=== PATIENT | male | born 1955 | race African-American/Black ===

== ENCOUNTER 2019-06-22 06:48 | Observation (INO) ==
[2019-06-22] MEDS ORDERED: PROMETHAZINE INJ 25 MG in SODIUM CHLORIDE 0.9% 50 ML IV PRN (08:41)
[2019-06-22] MEDS ORDERED: chlorproMAZINE INJ 25 MG in SODIUM CHLORIDE 0.9% 100 ML IV PRN (08:41)
[2019-06-22] MEDS ORDERED: ALPRAZolam 0.25 MG TABLET PO PRN (08:41)
[2019-06-22] MEDS ORDERED: BENZTROPINE 2 MG/2 ML AMP IV PRN (08:41)
[2019-06-22] MEDS ORDERED: guaiFENesin 200 MG/10 ML UDCUP PO PRN (08:41)
[2019-06-22] MEDS ORDERED: LACTULOSE 20 GM/30 ML UDCUP PO PRN (08:41)
[2019-06-22] MEDS ORDERED: ALUMINUM/MAGNES/SIMETH MAX STR 30 ML UDCUP PO PRN (08:41)
[2019-06-22] MEDS ORDERED: LOPERAMIDE 2 MG CAPSULE PO PRN ×2 (08:41)
[2019-06-22] MEDS ORDERED: TEMAZEPAM 7.5 MG CAPSULE PO PRN (08:41)
[2019-06-22] MEDS ORDERED: ACETAMINOPHEN 325 MG TABLET PO PRN (08:41)
[2019-06-22] MEDS ORDERED: diphenhydrAMINE CAP 25 MG CAPSULE PO PRN (08:41)
[2019-06-22] MEDS ORDERED: MYLANTA/LIDO VISC 2:1 300 ML BOTTLE SWISH/SWAL PRN (08:41)
[2019-06-22] MEDS ORDERED: MAGNESIUM HYDROXIDE SUSP 30 ML UDCUP PO PRN (08:41)
[2019-06-22] MEDS ORDERED: ONDANSETRON 4 MG/2 ML VIAL IV PRN (08:41)
[2019-06-22] MEDS ORDERED: chlorproMAZINE INJ 50 MG in SODIUM CHLORIDE 0.9% 100 ML IV PRN (08:41)
[2019-06-22] MEDS ORDERED: chlorproMAZINE 25 MG TABLET PO PRN (08:41)
[2019-06-22] MEDS ORDERED: traMADol 50 MG TABLET PO PRN (08:41)
[2019-06-22] MEDS ORDERED: MYLANTA/LIDO VISC 2:1 300 ML BOTTLE SWISH/SPIT PRN (08:41)
[2019-06-22 09:17] LABS: Basophils % 0.3 % (0.0-0.8); Eosinophils % 0.3 % (0.00-10.9); Hematocrit 30.2 VOL% (42.0-52.0); Hemoglobin 10.1 GM/DL (14.0-18.0); Immature Granulocytes % 1.1 %; Lymphocytes # 0.6 10*3/uL (1.4-4.0); Lymphocytes % 6.9 % (21.2-54.2); Mean Corpuscular HGB Conc 33.4 GM/DL (32-36); Mean Corpuscular Volume 82.3 FL (87-102); Monocytes % 11.5 % (1.7-12.7); Neutrophils % 79.9 % (38.7-73.9); Platelet Count 125 T/CUMM (130-400); Red Blood Count 3.67 MC/CUMM (3.8-5.5); Red Cell Distribution Width 18.7 % (9.3-17.3); White Blood Count 9.3 T/CUMM (4-12)
[2019-06-22 09:32] LABS: Albumin 1.9 G/DL (3.4-5.0); Bilirubin,Total 4.9 MG/DL (0.2-1.0); Calcium 8.8 MG/DL (8.5-10.1); Osmolality,Calculated 278.4 MOS/KG (273-304); Total Protein 7.8 G/DL (6.4-8.3); Uric Acid 6.6 MG/DL (3.5-7.2)
[2019-06-22 09:34] LABS: Hypochromasia 1+; Ovalocytes Slight
[2019-06-22] MEDS ORDERED: MAGNESIUM SULF RIDER 2 GM in PREMIX 1 EACH IV PRN (18:02)
[2019-06-22] MEDS: MAGNESIUM SULF RIDER 4 GM in PREMIX 1 EACH IV PRN (18:16)
[2019-06-23 04:48] LABS: Basophils % 0.2 % (0.0-0.8); Eosinophils # 0.1 10*3/uL (0.0-0.87); Eosinophils % 0.6 % (0.00-10.9); Hematocrit 27.9 VOL% (42.0-52.0); Hemoglobin 9.5 GM/DL (14.0-18.0); Immature Granulocytes % 0.8 %; Immature Granulocytes Absolute 0.08 #; Lymphocytes # 0.7 10*3/uL (1.4-4.0); Lymphocytes % 6.3 % (21.2-54.2); Mean Corpuscular HGB Conc 34.1 GM/DL (32-36); Mean Corpuscular Volume 80.2 FL (87-102); Monocytes % 12.9 % (1.7-12.7); Neutrophils % 79.2 % (38.7-73.9); Platelet Count 115 T/CUMM (130-400); Red Blood Count 3.48 MC/CUMM (3.8-5.5); Red Cell Distribution Width 18.8 % (9.3-17.3); White Blood Count 10.5 T/CUMM (4-12)
[2019-06-23 05:09] LABS: Albumin 1.9 G/DL (3.4-5.0); Calcium 8.8 MG/DL (8.5-10.1); Osmolality,Calculated 282.1 MOS/KG (273-304); Total Protein 7.7 G/DL (6.4-8.3)
[2019-06-23 05:18] LABS: Lymphocytes 6 % (20-55); Metamyelocytes 1 %; Platelet Estimate Decreased; Segmented Neutrophils 85 % (50-85); Total Cells Counted 100
[2019-06-23 05:19] LABS: Polychromasia Few; Target Cells Few
[2019-06-23] MEDS ORDERED: HYDROmorphone 2 MG/1 ML VIAL IV PRN (08:15)
[2019-06-23] MEDS ORDERED: fentaNYL 25 MCG/HR PATCH TRANSDERM SCH (09:00)
[2019-06-23] MEDS ORDERED: diphenhydrAMINE 50 MG/1 ML VIAL IV ONE (10:30)
[2019-06-23] MEDS ORDERED: OXALIPLATIN 150 MG in DEXTROSE 5% 250 ML IV ONE (10:30)
[2019-06-23] MEDS ORDERED: FAMOTIDINE 20 MG/2 ML VIAL IV ONE (10:30)
[2019-06-23] MEDS ORDERED: DEXAMETHASONE 10 MG/1 ML VIAL IV ONE (10:30)
[2019-06-23] MEDS ORDERED: FLUOROURACIL IV ONE (10:30)
[2019-06-23] MEDS ORDERED: PALONOSETRON 0.25 MG/5 ML VIAL IV ONE (10:30)
[2019-06-23] MEDS: LOSARTAN/HCTZ 50-12.5 MG TABLET PO SCH (16:18)
[2019-06-23 17:12] LABS: Apearance,Urine Slightly Hazy (Clear); Blood, Urine Negative (Negative); Glucose,Urine (UA) Negative (Negative); Ketones,Urine Negative (Negative); Mucus,Urine Occasional /LPF (Occasional); Nitrite,Urine Negative (Negative); Protein,Urine 30 MG/DL; RBC,Urine 2 /HPF (0-4); Squamous Epithelial Cell,Urine Occasional /HPF (0-10); Urine Color Amber (Yellow); Urine Specific Gravity 1.024 (1.001-1.035); WBC,Urine 3 /HPF (0-6)
[2019-06-23 17:13] LABS: Bilirubin,Urine Moderate mg/dL (Negative)
[2019-06-24 05:45] LABS: Bilirubin,Total 3.9 MG/DL (0.2-1.0); Calcium 9.1 MG/DL (8.5-10.1); Osmolality,Calculated 285.1 MOS/KG (273-304); Total Protein 8.4 G/DL (6.4-8.3)
[2019-06-24] MEDS: MAGNESIUM SULF RIDER 4 GM in PREMIX 1 EACH IV PRN (06:23)
[2019-06-24] MEDS: LOSARTAN/HCTZ 50-12.5 MG TABLET PO SCH (08:45)
[2019-06-24 08:56] VITALS: BP 157/106
[2019-06-24] MEDS ORDERED: FILGRASTIM-SNDZ 300 MCG/0.5 ML SYRINGE SUBCUT SCH (09:00)
[2019-06-24 11:10] LABS: Basophils % 0.1 % (0.0-0.8); Hematocrit 30.3 VOL% (42.0-52.0); Hemoglobin 10.1 GM/DL (14.0-18.0); Immature Granulocytes % 0.5 %; Immature Granulocytes Absolute 0.08 #; Lymphocytes # 0.4 10*3/uL (1.4-4.0); Lymphocytes % 2.8 % (21.2-54.2); Mean Corpuscular HGB Conc 33.3 GM/DL (32-36); Mean Corpuscular Volume 82.8 FL (87-102); Monocytes % 2.9 % (1.7-12.7); Neutrophils % 93.7 % (38.7-73.9); Platelet Count 144 T/CUMM (130-400); Red Blood Count 3.66 MC/CUMM (3.8-5.5); Red Cell Distribution Width 19.5 % (9.3-17.3); White Blood Count 14.6 T/CUMM (4-12)
[2019-06-24 11:32] LABS: Hypochromasia 1+; Lymphocytes 1 % (20-55); Platelet Estimate Adequate; Segmented Neutrophils 95 % (50-85); Total Cells Counted 100
== END 2019-06-24 12:55 | disposition home or self-care (01) ==
LOC: INTOOBSV 06:48 → N.4E 06:48
PROVIDERS: ADMIT Specialist; ATTEND Specialist

== ENCOUNTER 2019-08-14 15:28 | Inpatient (IN) ==
[2019-08-14] MEDS ORDERED: SODIUM CHLORIDE 0.9% 1,000 ML IV STA (15:49)
[2019-08-14 16:42] LABS: Basophils % 0.1 % (0.0-0.8); Hematocrit 25.6 VOL% (42.0-52.0); Hemoglobin 8.1 GM/DL (14.0-18.0); Immature Granulocytes % 0.5 %; Immature Granulocytes Absolute 0.05 #; Lymphocytes # 0.5 10*3/uL (1.4-4.0); Lymphocytes % 4.2 % (21.2-54.2); Mean Corpuscular HGB Conc 31.6 GM/DL (32-36); Mean Platelet Volume 10.1 FL (9.6-12.0); Monocytes % 8.6 % (1.7-12.7); Neutrophils % 86.6 % (38.7-73.9); Platelet Count 161 T/CUMM (130-400); Red Blood Count 2.91 MC/CUMM (3.8-5.5); Red Cell Distribution Width 23.5 % (9.3-17.3); White Blood Count 10.8 T/CUMM (4-12)
[2019-08-14 16:53] LABS: INR 1.2; PT Patient Result 12.7 SECS (9.6-12.2); Partial Thromboplastin Time < 21.0 SECS (20.8-36.0)
[2019-08-14 16:58] LABS: Alanine Aminotransferase 30 U/L (16-61); Albumin 1.9 G/DL (3.4-5.0); Alkaline Phosphatase 556 U/L (45-117); Aspartate Amino Transferase 146 U/L (0-37); Blood Urea Nitrogen 20 MG/DL (7-18); Calcium 8.4 MG/DL (8.5-10.1); Estimated Glom Filtration Rate 116 ML/MIN; Glucose 113 MG/DL (74-106); Osmolality,Calculated 291.7 MOS/KG (273-304); Total Protein 9.6 G/DL (6.4-8.3)
[2019-08-14 17:06] LABS: Apearance,Urine Slightly Hazy (Clear); Bilirubin,Urine Negative (Negative); Blood, Urine Large mg/dL (Negative); Glucose,Urine (UA) Negative (Negative); Ketones,Urine 20 mg/dL (Negative); Mucus,Urine Occasional /LPF (Occasional); Nitrite,Urine Negative (Negative); Protein,Urine 100 MG/DL; RBC,Urine 1287 /HPF (0-4); Urine Color Amber (Yellow); Urine Specific Gravity 1.018 (1.001-1.035)
[2019-08-14 17:07] LABS: Barbiturates Screen,Urine Negative (Negative); Benzodiazepines Screen,Urine Negative (Negative); Cannabinoid Screen,Urine Negative (Negative); Opiate Screen,Urine Negative (Negative); Phencyclidine Screen,Urine Negative (Negative)
[2019-08-14 18:34] LABS: Anisocytosis 1+; Band Neutrophils 1 % (0-10); Lymphocytes 7 % (20-55); Macrocytosis 1+; Segmented Neutrophils 88 % (50-85); Total Cells Counted 100
[2019-08-14 18:35] LABS: Platelet Estimate Adequate
[2019-08-14] MEDS ORDERED: guaiFENesin/DM ER 600-30 MG TABLET PO PRN (18:47)
[2019-08-14] MEDS ORDERED: ONDANSETRON 4 MG/2 ML VIAL IV PRN (18:47)
[2019-08-14] MEDS ORDERED: ACETAMINOPHEN 325 MG TABLET PO PRN (18:47)
[2019-08-14] MEDS ORDERED: SODIUM CHLORIDE 0.9% IV ONE (18:50)
[2019-08-14] MEDS ORDERED: PANTOPRAZOLE IV ONE (18:50)
[2019-08-14] MEDS ORDERED: PANTOPRAZOLE 40 MG VIAL IV ONE (21:28)
[2019-08-14] MEDS: DEXT 5% NACL 0.9% KCL 20 MEQ 20 MEQ/1,000 ML BAG IV SCH (23:03)
[2019-08-15] MEDS ORDERED: SODIUM CHLORIDE 0.9% 1,000 ML IV ONE (00:49)
[2019-08-15] MEDS: cefTRIAXone 1,000 MG in SYRINGE 1 EACH IV SCH (01:29)
[2019-08-15 06:02] LABS: Basophils % 0.1 % (0.0-0.8); Hematocrit 22.2 VOL% (42.0-52.0); Hemoglobin 6.9 GM/DL (14.0-18.0); Immature Granulocytes % 0.5 %; Immature Granulocytes Absolute 0.06 #; Lymphocytes # 0.6 10*3/uL (1.4-4.0); Mean Corpuscular HGB Conc 31.1 GM/DL (32-36); Mean Corpuscular Volume 89.9 FL (87-102); Mean Platelet Volume 9.8 FL (9.6-12.0); Monocytes % 9.8 % (1.7-12.7); NRBC # 0.02 10*3/uL; Neutrophils % 84.6 % (38.7-73.9); Platelet Count 119 T/CUMM (130-400); Red Blood Count 2.47 MC/CUMM (3.8-5.5); Red Cell Distribution Width 23.5 % (9.3-17.3); White Blood Count 12.5 T/CUMM (4-12)
[2019-08-15 06:19] LABS: Albumin 1.8 G/DL (3.4-5.0); Bilirubin,Total 1.4 MG/DL (0.2-1.0); Calcium 7.8 MG/DL (8.5-10.1)
[2019-08-15] MEDS ORDERED: POTASSIUM CHLORIDE 20 MEQ TABLET PO PRN (07:59)
[2019-08-15] MEDS ORDERED: SODIUM CHLORIDE 0.9% 1,000 ML IV PRN (08:03)
[2019-08-15] MEDS: POTASSIUM CHLORIDE 20 MEQ TABLET PO PRN ×4 (09:20→17:21)
[2019-08-15] MEDS ORDERED: HEPARIN LOCK FLUSH 500 UNIT/5 ML SYRINGE IV ONE (09:27)
[2019-08-15] MEDS: DEXT 5% NACL 0.9% KCL 20 MEQ 20 MEQ/1,000 ML BAG IV SCH (09:47)
[2019-08-15] MEDS: DEXTROSE 5% NACL 0.45% 1,000 ML IV SCH (09:58)
[2019-08-15 18:53] LABS: Hematocrit 29.3 VOL% (42.0-52.0)
[2019-08-15 18:56] LABS: Hemoglobin 9.4 GM/DL (14.0-18.0)
[2019-08-16] MEDS: cefTRIAXone 1,000 MG in SYRINGE 1 EACH IV SCH (02:34)
[2019-08-16] MEDS: DEXTROSE 5% NACL 0.45% 1,000 ML IV SCH (02:36)
[2019-08-16 05:53] LABS: Basophils % 0.1 % (0.0-0.8); Eosinophils # 0.1 10*3/uL (0.0-0.87); Eosinophils % 0.9 % (0.00-10.9); Hematocrit 25.5 VOL% (42.0-52.0); Hemoglobin 8.4 GM/DL (14.0-18.0); Immature Granulocytes % 1.9 %; Immature Granulocytes Absolute 0.18 #; Lymphocytes # 0.6 10*3/uL (1.4-4.0); Lymphocytes % 6.5 % (21.2-54.2); Mean Corpuscular HGB Conc 32.9 GM/DL (32-36); Mean Corpuscular Volume 85.9 FL (87-102); Mean Platelet Volume 10.1 FL (9.6-12.0); Monocytes % 11.5 % (1.7-12.7); NRBC # 0.02 10*3/uL; Neutrophils % 79.1 % (38.7-73.9); Red Blood Count 2.97 MC/CUMM (3.8-5.5); White Blood Count 9.7 T/CUMM (4-12)
[2019-08-16 05:54] LABS: Platelet Count 107 T/CUMM (130-400)
[2019-08-16 06:14] LABS: Calcium 6.8 MG/DL (8.5-10.1)
[2019-08-16 06:36] LABS: Platelet Estimate Decreased; Polychromasia Few
[2019-08-16] MEDS: POTASSIUM CHLORIDE RIDER 10 MEQ in PREMIX 1 EACH IV PRN ×3 (07:59→10:32)
[2019-08-16] MEDS ORDERED: LIDOCAINE 2% 5 ML VIAL ONE (09:00)
[2019-08-16] MEDS ORDERED: propofoL 200 MG/20 ML VIAL IV ONE (09:00)
[2019-08-16] MEDS ORDERED: LACTATED RINGERS 1,000 ML IV SCH (09:30)
[2019-08-17] MEDS: cefTRIAXone 1,000 MG in SYRINGE 1 EACH IV SCH (02:15)
[2019-08-17] MEDS: DEXTROSE 5% NACL 0.45% 1,000 ML IV SCH ×2 (02:40→08:07)
[2019-08-17 03:17] LABS: Basophils % 0.1 % (0.0-0.8); Eosinophils # 0.1 10*3/uL (0.0-0.87); Eosinophils % 1.2 % (0.00-10.9); Immature Granulocytes % 0.4 %; Immature Granulocytes Absolute 0.04 #; Lymphocytes # 0.9 10*3/uL (1.4-4.0); Lymphocytes % 9.1 % (21.2-54.2); Mean Corpuscular HGB Conc 32.4 GM/DL (32-36); Mean Corpuscular Volume 87.1 FL (87-102); Mean Platelet Volume 10.5 FL (9.6-12.0); Monocytes % 11.1 % (1.7-12.7); Neutrophils % 78.1 % (38.7-73.9); Platelet Count 93 T/CUMM (130-400); Red Blood Count 2.02 MC/CUMM (3.8-5.5); Red Cell Distribution Width 20.8 % (9.3-17.3); White Blood Count 9.8 T/CUMM (4-12)
[2019-08-17 03:19] LABS: Hematocrit 17.6 VOL% (42.0-52.0); Hemoglobin 5.7 GM/DL (14.0-18.0)
[2019-08-17 03:25] LABS: Osmolality,Calculated 271.7 MOS/KG (273-304)
[2019-08-17 04:06] LABS: Hypochromasia 2+; Platelet Estimate Normal; Polychromasia Few
[2019-08-17 04:21] LABS: Anisocytosis 1+; Microcytosis 1+
[2019-08-17 05:28] LABS: Basophils % 0.1 % (0.0-0.8); Eosinophils # 0.1 10*3/uL (0.0-0.87); Eosinophils % 1.3 % (0.00-10.9); Hematocrit 26.2 VOL% (42.0-52.0); Hemoglobin 8.6 GM/DL (14.0-18.0); Immature Granulocytes % 0.5 %; Immature Granulocytes Absolute 0.04 #; Lymphocytes # 0.6 10*3/uL (1.4-4.0); Lymphocytes % 8.3 % (21.2-54.2); Mean Corpuscular HGB Conc 32.8 GM/DL (32-36); Mean Corpuscular Volume 85.9 FL (87-102); Mean Platelet Volume 9.9 FL (9.6-12.0); Monocytes % 10.5 % (1.7-12.7); Neutrophils % 79.3 % (38.7-73.9); Red Blood Count 3.05 MC/CUMM (3.8-5.5); Red Cell Distribution Width 20.7 % (9.3-17.3); White Blood Count 7.6 T/CUMM (4-12)
[2019-08-17 05:31] LABS: Platelet Count 99 T/CUMM (130-400)
[2019-08-17 06:02] LABS: Platelet Estimate Decreased
[2019-08-17 06:03] LABS: Polychromasia Few
[2019-08-17] MEDS: POTASSIUM CHLORIDE 20 MEQ TABLET PO PRN ×3 (09:05→16:57)
[2019-08-17 11:33] LABS: Hematocrit 27.9 VOL% (42.0-52.0); Hemoglobin 9.2 GM/DL (14.0-18.0)
[2019-08-17] MEDS: PANTOPRAZOLE 40 MG TABLET PO SCH (20:57)
[2019-08-18] MEDS: cefTRIAXone 1,000 MG in SYRINGE 1 EACH IV SCH (01:50)
[2019-08-18] MEDS: PANTOPRAZOLE 40 MG TABLET PO SCH (08:46)
[2019-08-18] MEDS ORDERED: HEPARIN LOCK FLUSH 500 UNIT/5 ML SYRINGE IV ONE (12:50)
[2019-08-18 13:13] VITALS: BP 125/83
== END 2019-08-18 16:10 | disposition home health service (06) | DRG 432 ==
LOC: EDBD → EDUNIT# → N.ED 15:28 → SUATTDRO 18:47 → N.EDINP 18:47 → N.4E 19:33
PROVIDERS: ADMIT Internal Medicine Cardiovascular Disease; ATTEND Internal Medicine
PROC: EGDWEBL (ICD-10-PCS; 2019-08-16 12:20)

== ENCOUNTER 2019-09-07 10:41 | Inpatient (IN) ==
[2019-09-07] MEDS ORDERED: PANTOPRAZOLE 40 MG VIAL IV STA (10:56)
[2019-09-07] MEDS ORDERED: ONDANSETRON 4 MG/2 ML VIAL IV STA (10:56)
[2019-09-07] MEDS ORDERED: SODIUM CHLORIDE 0.9% 1,000 ML IV STA (11:06)
[2019-09-07 11:58] LABS: Basophils % 0.1 % (0.0-0.8); Immature Granulocytes % 1.4 %; Immature Granulocytes Absolute 0.28 #; Lymphocytes # 1.3 10*3/uL (1.4-4.0); Lymphocytes % 6.5 % (21.2-54.2); Mean Corpuscular HGB Conc 32.9 GM/DL (32-36); Mean Corpuscular Volume 85.4 FL (87-102); Mean Platelet Volume 10.2 FL (9.6-12.0); Platelet Count 239 T/CUMM (130-400); Red Blood Count 1.92 MC/CUMM (3.8-5.5); Red Cell Distribution Width 18.9 % (9.3-17.3); White Blood Count 19.5 T/CUMM (4-12)
[2019-09-07 12:03] LABS: INR 1.2; PT Patient Result 13.4 SECS (9.6-12.2); Partial Thromboplastin Time 24.6 SECS (20.8-36.0)
[2019-09-07 12:13] LABS: Albumin 1.3 G/DL (3.4-5.0); Bilirubin,Total 2.9 MG/DL (0.2-1.0); Calcium 7.7 MG/DL (8.5-10.1); Osmolality,Calculated 268.5 MOS/KG (273-304); Total Protein 7.3 G/DL (6.4-8.3)
[2019-09-07 12:15] LABS: Hematocrit 16.4 VOL% (42.0-52.0); Hemoglobin 5.4 GM/DL (14.0-18.0)
[2019-09-07] MEDS ORDERED: SODIUM CHLORIDE 0.9% 1,000 ML IV PRN (12:24)
[2019-09-07] MEDS ORDERED: ONDANSETRON 4 MG/2 ML VIAL IV PRN (13:34)
[2019-09-07] MEDS ORDERED: PROMETHAZINE 25 MG/1 ML VIAL IM PRN (13:34)
[2019-09-07] MEDS: CYPROHEPTADINE 4 MG TABLET PO SCH ×2 (16:10→22:53)
[2019-09-07] MEDS ORDERED: OCTREOTIDE 100 MCG/ML SYRINGE IV ONE (18:13)
[2019-09-07] MEDS: OCTREOTIDE 500 MCG in SODIUM CHLORIDE 0.9% 100 ML IV SCH (22:47)
[2019-09-07] MEDS: TAMSULOSIN 0.4 MG CAPSULE PO SCH (22:53)
[2019-09-08 00:24] LABS: Hematocrit 29.7 VOL% (42.0-52.0); Hemoglobin 10.4 GM/DL (14.0-18.0)
[2019-09-08 01:54] LABS: Apearance,Urine CLEAR (Clear); Bilirubin,Urine Negative (Negative); Blood, Urine Negative (Negative); Glucose,Urine (UA) Negative (Negative); Hyaline Casts,Urine 10 /LPF (0-3); Ketones,Urine Negative (Negative); Mucus,Urine Occasional /LPF (Occasional); Nitrite,Urine Negative (Negative); Protein,Urine Negative; RBC,Urine 2 /HPF (0-4); Urine Color Amber (Yellow); Urine Specific Gravity 1.015 (1.001-1.035); WBC,Urine 1 /HPF (0-6)
[2019-09-08] MEDS ORDERED: SODIUM CHLORIDE 0.9% 500 ML IV ONE (02:20)
[2019-09-08 03:12] LABS: Basophils % 0.1 % (0.0-0.8); Hematocrit 29.2 VOL% (42.0-52.0); Hemoglobin 10.2 GM/DL (14.0-18.0); Immature Granulocytes Absolute 0.19 #; Lymphocytes # 0.8 10*3/uL (1.4-4.0); Mean Corpuscular HGB Conc 34.9 GM/DL (32-36); Mean Platelet Volume 9.3 FL (9.6-12.0); Monocytes % 12.8 % (1.7-12.7); NRBC # 0.03 10*3/uL; Neutrophils % 82.1 % (38.7-73.9); Platelet Count 122 T/CUMM (130-400); Red Blood Count 3.52 MC/CUMM (3.8-5.5); Red Cell Distribution Width 15.9 % (9.3-17.3); White Blood Count 18.6 T/CUMM (4-12)
[2019-09-08 03:31] LABS: Calcium 7.4 MG/DL (8.5-10.1); Osmolality,Calculated 277.8 MOS/KG (273-304)
[2019-09-08 04:56] LABS: Band Neutrophils 1 % (0-10); Lymphocytes 3 % (20-55); Platelet Estimate Normal; Segmented Neutrophils 89 % (50-85); Total Cells Counted 100
[2019-09-08 04:57] LABS: Hypochromasia Slight
[2019-09-08 05:54] LABS: Basophils % 0.1 % (0.0-0.8); Hematocrit 29.9 VOL% (42.0-52.0); Hemoglobin 10.5 GM/DL (14.0-18.0); Immature Granulocytes % 0.8 %; Immature Granulocytes Absolute 0.16 #; Lymphocytes # 0.7 10*3/uL (1.4-4.0); Lymphocytes % 3.8 % (21.2-54.2); Mean Corpuscular HGB Conc 35.1 GM/DL (32-36); Mean Corpuscular Volume 83.1 FL (87-102); Mean Platelet Volume 10.7 FL (9.6-12.0); Monocytes % 11.6 % (1.7-12.7); NRBC # 0.02 10*3/uL; Neutrophils % 83.7 % (38.7-73.9); Platelet Count 123 T/CUMM (130-400); Red Cell Distribution Width 15.9 % (9.3-17.3); White Blood Count 18.9 T/CUMM (4-12)
[2019-09-08] MEDS ORDERED: LACTULOSE 20 GM/30 ML UDCUP PO SCH (06:00)
[2019-09-08] MEDS: OCTREOTIDE 500 MCG in SODIUM CHLORIDE 0.9% 100 ML IV SCH ×2 (06:12→10:00)
[2019-09-08 06:13] LABS: Band Neutrophils 1 % (0-10); Lymphocytes 4 % (20-55); Platelet Estimate Decreased; Segmented Neutrophils 87 % (50-85); Total Cells Counted 100
[2019-09-08 06:14] LABS: Calcium 7.6 MG/DL (8.5-10.1); Osmolality,Calculated 279.7 MOS/KG (273-304)
[2019-09-08] MEDS ORDERED: LACTATED RINGERS 1,000 ML IV SCH (08:00)
[2019-09-08] MEDS ORDERED: LACTULOSE 320 GM/480 ML BOTTLE RECTAL SCH (09:00)
[2019-09-08] MEDS: PANTOPRAZOLE 40 MG TABLET PO SCH (10:09)
[2019-09-08] MEDS: DEXAMETHASONE 0.5 MG TABLET PO SCH (10:14)
[2019-09-08] MEDS: CYPROHEPTADINE 4 MG TABLET PO SCH (10:14)
[2019-09-08] MEDS ORDERED: DIGOXIN 0.5 MG/2 ML AMP IV ONE (12:28)
[2019-09-08] MEDS ORDERED: PNEUMOCOCCAL VACCINE (13 VALENT) 0.5 ML SYRINGE IM ONE (14:12)
[2019-09-08] MEDS: TAMSULOSIN 0.4 MG CAPSULE PO SCH (22:42)
[2019-09-09] MEDS ORDERED: MORPHINE 4 MG/1 ML VIAL IV PRN (09:33)
[2019-09-09] MEDS: PANTOPRAZOLE 40 MG TABLET PO SCH (09:59)
[2019-09-09] MEDS: DEXAMETHASONE 0.5 MG TABLET PO SCH (09:59)
[2019-09-09] MEDS: SODIUM CHLORIDE 0.45% 1,000 ML IV SCH (10:18)
[2019-09-09] MEDS ORDERED: LORazepam 2 MG/1 ML VIAL IV PRN (11:35)
[2019-09-09] MEDS: SCOPOLAMINE 1.5 MG PATCH TRANSDERM SCH (12:22)
[2019-09-09] MEDS: fentaNYL 75 MCG/HR PATCH TRANSDERM SCH (12:23)
[2019-09-10] MEDS: SODIUM CHLORIDE 0.45% 1,000 ML IV SCH (05:51)
[2019-09-10] MEDS ORDERED: fentaNYL 25 MCG/HR PATCH TRANSDERM SCH (09:00)
[2019-09-11] MEDS: SODIUM CHLORIDE 0.45% 1,000 ML IV SCH (11:25)
[2019-09-11] MEDS: NYSTATIN 500,000 UNIT/5 ML UDCUP SWISH/SWAL SCH ×3 (14:54→21:51)
[2019-09-12] MEDS: SCOPOLAMINE 1.5 MG PATCH TRANSDERM SCH (08:33)
[2019-09-12] MEDS: NYSTATIN 500,000 UNIT/5 ML UDCUP SWISH/SWAL SCH ×3 (08:33→17:23)
[2019-09-12] MEDS: fentaNYL 75 MCG/HR PATCH TRANSDERM SCH (08:33)
[2019-09-12] MEDS ORDERED: LACTULOSE 20 GM/30 ML UDCUP PO SCH (12:00)
[2019-09-13] MEDS: NYSTATIN 500,000 UNIT/5 ML UDCUP SWISH/SWAL SCH ×5 (02:51→21:23)
[2019-09-13] MEDS: LACTULOSE 20 GM/30 ML UDCUP PO SCH (09:16)
[2019-09-13 09:46] LABS: Hemoglobin 9.9 GM/DL (14.0-18.0); Red Blood Count 3.46 MC/CUMM (3.8-5.5); White Blood Count 12.9 T/CUMM (4-12)
[2019-09-13 09:47] LABS: Eosinophils # 0.1 10*3/uL (0.0-0.87); Eosinophils % 0.5 % (0.00-10.9); Immature Granulocytes % 0.9 %; Immature Granulocytes Absolute 0.11 #; Lymphocytes # 1.5 10*3/uL (1.4-4.0); Lymphocytes % 11.2 % (21.2-54.2); Mean Corpuscular HGB Conc 31.9 GM/DL (32-36); Mean Corpuscular Volume 89.6 FL (87-102); Mean Platelet Volume 11.8 FL (9.6-12.0); Monocytes % 6.7 % (1.7-12.7); NRBC # 0.03 10*3/uL; Neutrophils % 80.7 % (38.7-73.9); Platelet Count 89 T/CUMM (130-400); Red Cell Distribution Width 18.4 % (9.3-17.3)
[2019-09-13 09:55] LABS: INR 1.2; PT Patient Result 13.4 SECS (9.6-12.2); Partial Thromboplastin Time 26.5 SECS (20.8-36.0)
[2019-09-13 10:02] LABS: Hypochromasia 1+; Platelet Estimate Decreased
[2019-09-13 10:08] LABS: Albumin 1.1 G/DL (3.4-5.0); Bilirubin,Total 5.3 MG/DL (0.2-1.0); Calcium 7.8 MG/DL (8.5-10.1); Osmolality,Calculated 298.6 MOS/KG (273-304); Total Protein 8.4 G/DL (6.4-8.3)
[2019-09-13] MEDS: oxyCODONE IR 5 MG TABLET PO PRN (21:34)
[2019-09-14] MEDS: SODIUM CHLORIDE 0.45% 1,000 ML IV SCH (09:24)
[2019-09-14] MEDS: LACTULOSE 20 GM/30 ML UDCUP PO SCH (09:47)
[2019-09-14] MEDS: NYSTATIN 500,000 UNIT/5 ML UDCUP SWISH/SWAL SCH ×2 (09:47→13:35)
[2019-09-14] MEDS: oxyCODONE IR 5 MG TABLET PO PRN (09:52)
[2019-09-14 12:44] VITALS: BP 119/79
[2019-09-14] MEDS ORDERED: HEPARIN LOCK FLUSH 500 UNIT/5 ML SYRINGE IV ONE (12:54)
== END 2019-09-14 13:24 | disposition hospice, home (50) | DRG 368 ==
LOC: N.ED 10:41 → SUATTDRO 12:23 → N.EDINP 12:23 → N.ICU 13:41 → N.4E 09-08 18:16
PROVIDERS: ADMIT Internal Medicine; ATTEND Internal Medicine